=== PATIENT | male | born 1955 | race Hispanic/Latino ===

== ENCOUNTER 2017-10-07 13:13 | Emergency (ER) | payer BC, OTHER ==
[2017-10-07 13:43] VITALS: BMI 23.6
[2017-10-07 13:50] VITALS: RESP 18; TEMP 97.8
[2017-10-07] MEDS ORDERED: MethylPREDNISolone Depo 40 mg/ml Inj IM STA (14:04)
--- NOTE | 2017-10-07 14:12 | ED PDOC ---
Arrival/HPI - General Historian: Patient - History of Present Illness Time/Duration: Prior to Arrival - General Chief Complaint: Allergic Reaction Time Seen by Provider: 10/07/17 13:17 - History of Present Illness Narrative History of Present Illness (Text): 10/07/17 14:08 62 M with no significant past medical history presenting with complaints of itchy rash which began a few days after working in his sister's yard which was filled with addison and poison tiffany as per patient. States the itchiness began on his right arm and then slowly began appearing on his right leg. Patient states he was working in his sister's yard the first time two weeks prior. He then states he was wearing a short sleeved shirt and jeans with a knee hole in the affected region. Denies fevers, chills, body aches, arthralgias, myalgias. ( Aditya [place]) Past Medical History - Provider Review Nursing Documentation Reviewed: Yes - Infectious Disease Hx of Infectious Diseases: None - Cardiac Hx Cardiac Disorders: Yes Hx Hypertension: Yes - Pulmonary Hx Respiratory Disorders: Yes (SMOKED CIGARETTES H/O < PPD. QUIT) - Neurological Hx Neurological Disorder: No - HEENT Hx HEENT Disorder: No - Renal Hx Renal Disorder: No - Endocrine/Metabolic Hx Endocrine Disorders: No - Hematological/Oncological Hx Blood Disorders: No - Integumentary Hx Dermatological Disorder: No - Musculoskeletal/Rheumatological Hx Musculoskeletal Disorders: Yes Hx Falls: Yes Hx Fractures: Yes (FX LEFT HAND WITH METAL PLATE.SHATTERED WRIST. H/O) - Gastrointestinal Hx Gastrointestinal Disorders: No - Genitourinary/Gynecological Hx Genitourinary Disorders: No - Psychiatric Hx Psychophysiologic Disorder: No (SMOKED CIGARETTES,ETOH ABUSE WAS ON AA. DRINKS BEER) Hx Substance Use: No - Surgical History Hx Appendectomy: Yes - Anesthesia Hx Anesthesia: No Hx Anesthesia Reactions: No Hx Malignant Hyperthermia: No Family/Social History - Physician Review Nursing Documentation Reviewed: Yes Family/Social History: Other (non-contributory) Smoking Status: Former Smoker Hx Alcohol Use: Yes (DRANK LAST WEDNESDAY 4 BEERS,ETOH ABUSE. ATTENDED AA.QUIT) Frequency of alcohol use: Few days per week Hx Substance Use: No Allergies/Home Meds Allergies/Adverse Reactions: Allergies No Known Allergies Allergy (Verified 11/04/15 19:10) Home Medications: Home Meds Medication Instructions Recorded Confirmed No Known Home Med 10/07/17 10/07/17 Review of Systems - Physician Review All systems were reviewed & negative as marked: Yes - Review of Systems Constitutional: Normal. absent: Fatigue Eyes: Normal. absent: Vision Changes ENT: Normal Respiratory: Normal. absent: SOB, Wheezing Cardiovascular: Normal. absent: Chest Pain, Palpitations Gastrointestinal: Normal. absent: Abdominal Pain, Nausea, Vomiting Genitourinary Male: Normal. absent: Dysuria Musculoskeletal: Normal. absent: Arthralgias, Myalgias Skin: Normal Neurological: Normal. absent: Headache, Dizziness Psychiatric: Normal. absent: Anxiety Physical Exam Vital Signs Reviewed: Yes Temperature: Afebrile Blood Pressure: Normal Pulse: Regular Respiratory Rate: Normal Appearance: Positive for: Well-Appearing, Non-Toxic, Comfortable Pain Distress: None Mental Status: Positive for: Alert and Oriented X 3 - Systems Exam Head: Present: Atraumatic, Normocephalic Pupils: Present: PERRL Extroacular Muscles: Present: EOMI Conjunctiva: Present: Normal Mouth: No: Moist Mucous Membranes Neck: Present: Normal Range of Motion Respiratory/Chest: Present: Clear to Auscultation. No: Good Air Exchange, Wheezes Cardiovascular: Present: Regular Rate and Rhythm, Normal S1, S2. No: Murmurs Abdomen: No: Tenderness, Distention, Normal Bowel Sounds Upper Extremity: Present: Erythema. No: Normal Inspection (macular rash), Edema Lower Extremity: Present: Edema (right knee). No: Normal Inspection (macualr rash of right lower leg) Neurological: Present: GCS=15, CN II-XII Intact, Speech Normal Skin: Present: Rashes (macular on upper and lower extremity) Psychiatric: Present: Alert, Oriented x 3, Normal Insight, Normal Concentration Vital Signs Temp Pulse Resp BP Pulse Ox 10/07/17 13:50 97.8 F 75 18 111/96 H 97 Medical Decision Making Re-evaluation Time: 14:54 (Patient states his symptoms have improved) ED Course and Treatment: 10/07/17 14:34 Patricio Luna is a 62 year old male who presents to the emergency department for complaint of an itchy rash. In agreement with resident note, which includes further HPI details. Patient was seen and evaluated with resident, came up with plan and treatment together. (Quan Junior) 10/07/17 14:16 Diagnosis: most likely rash due to poison tiffany exposure. Depo-medrol given for rash. 10/07/17 14:57 Symptoms improved, patient instructed to not use topical benadryl, only oral. (Aditya [place]) - Medication Orders Current Medication Orders: Discontinued Medications Methylprednisolone Acetate (Depo-Medrol) 40 mg IM STAT STA Stop: 10/07/17 14:05 Last Admin: 10/07/17 14:15 Dose: 40 mg Disposition/Present on Arrival - Present on Arrival Any Indicators Present on Arrival: No History of DVT/PE: No History of Uncontrolled Diabetes: No Urinary Catheter: No History of Decub. Ulcer: No History Surgical Site Infection Following: None - Disposition Have Diagnosis and Disposition been Completed?: Yes Disposition Time: 14:54 Patient Plan: Discharge - Disposition Diagnosis: Poison tiffany dermatitis Disposition: HOME/ ROUTINE Patient Problems: Current Active Problems Problem Status Onset Poison tiffany dermatitis Acute Condition: GOOD Discharge Instructions (ExitCare): Contact Dermatitis (DC), Poison [place], Poison [place], Poison [place] (DC) Additional Instructions: Mr. Luna, thank you for letting us take care of you today. You were treated for poison tiffany dermatitis. The emergency medical care you received today was directed at your acute symptoms. If you were prescribed any medication, please fill it and take as directed. It may take several days for your symptoms to resolve. Return to the Emergency Department if your symptoms worsen, do not improve, or if you have any other problems. Please contact your doctor or call one of the physicians/clinics you have been referred to that are listed on the Patient Visit Information form that is included in your discharge packet. Bring any paperwork you were given at discharge with you along with any medications you are taking to your follow up visit. Our treatment cannot replace ongoing medical care by a primary care provider (PCP) outside of the emergency department. If needed you may continue with calamine lotion, if you desire to use benadryl be sure to only use oral benadryl not topical as we discussed earlier. Thank you for allowing the [facility] [employer] team to be part of your care today. If you had an X-Ray or CT scan: A Radiologist will review the ED reading if any change in treatment is needed we will contact you. If you had a blood, urine, or wound culture: It will take several days for the results, if any change in treatment is needed we will contact you. If you had an STI test: It will take 48 hours for the results. Please call after 1 week if you have not heard back. Referrals: PCP,NO [Primary Care Provider] - Follow up with primary Forms: Topic (Lithuanian)
[2017-10-07 15:08] VITALS: BP 118/68; PULSE 78; O2SAT 99
== END 2017-10-07 15:07 | disposition home or self-care (01) ==
LOC: ED 13:13
DX: L23.7 Allergic contact dermatitis due to plants, except food (principal)
CPT/HCPCS: 96372; 99285; J1030